=== PATIENT | male | born 1950 | race Caucasian/White ===

== ENCOUNTER 2021-01-04 01:59 | Emergency (ER) | payer MEDICARE, OTHER ==
[~2021-01-04 01:59] MED LIST: LIPITOR TAB 2020 MG PO; LISINOPRIL10 MG PO; PLAVIX 75 MG TA75 MG PO
== END 2021-01-04 02:29 | disposition expired ==
LOC: ER1 01:59
DX: I46.9 Cardiac arrest, cause unspecified (principal); S00.31XA Abrasion of nose, initial encounter; Z95.1 Presence of aortocoronary bypass graft
CPT/HCPCS: 92950; 99285; J0171; J2001